=== PATIENT | female | born 1980 | race Caucasian/White ===

== ENCOUNTER 2016-04-12 00:49 | Emergency (ER) | payer SELFPAY ==
[~2016-04-12] VITALS: Ht 170.2 cm; Wt 65.0 kg
[2016-04-12 00:53] VITALS: BP 112/86; PULSE 92; RESP 18; TEMP 98; O2SAT 100
[2016-04-12] MEDS ORDERED: TETANUS/DIPHTHERIA TOXOID ADULT 0.5 ML VIAL IM ONE (01:15)
[2016-04-12] MEDS ORDERED: ACETAMINOPHEN/CODEINE 300 MG/30 MG TAB PO ONE (01:15)
[2016-04-12] MEDS ORDERED: ONDANSETRON ODT 4 MG TAB PO ONE (01:15)
--- NOTE | 2016-04-12 01:17 | PD ---
HPI Chief Complaint: Injury Time Seen by Provider: 01:10 Travel History International Travel<30 days: No Contact w/Intl Traveler<30days: No Traveled to known affect area: No History of Present Illness HPI 36-year-old female presents for evaluation of a puncture wound to the plantar aspect of the right forefoot. She reports that yesterday she was walking through her new house that she is moving into when she stepped on a nail. The nail went through the bottom of her flip-flop and into the plantar aspect of the right forefoot. She denies pain at the site of the puncture wound. Pain is throbbing and constant and worse with palpation or walking. She has washed the wound out. Her last tetanus vaccination is unknown. No other complaints. PFSH Past Medical History Anemia: Yes Cancer: No Diabetes: No Diminished Hearing: No Glaucoma: No Hepatitis: No Hiatal Hernia: No Hypertension: No Immunizations Current: Yes Migraines: Yes Thyroid Disease: No Tetanus Vaccination: Unknown Influenza Vaccination: Yes ?: Not : 6 Para: 3 Miscarriage: 2 : 1 Past Surgical History Section: Yes (3 ) Gynecologic Surgery: Yes (C SECTION X 3) Oral Surgery: Yes (TONSILLECTOMY) Tonsillectomy: Yes ( A CHILD.) Other Surgery: Yes Social History Alcohol Use: No Tobacco Use: Yes (1/2 PK/DAY) Substance Use: No Allergies-Medications (Allergen,Severity, Reaction): Coded Allergies: No Known Allergies (Verified , 04/12/16) Reported Meds & Prescriptions Reported Meds & Active Scripts Active Ibuprofen 800 Mg Tab 800 Mg PO Q6HR PRN Keflex (Cephalexin) 500 Mg Cap 500 Mg PO Q6H 5 Days Cipro (Ciprofloxacin HCl) 500 Mg Tab 500 Mg PO BID 5 Days Review of Systems Musculoskeletal: Positive: Pain, No: Limited ROM Skin: Positive Other (puncture wound) Physical Exam Narrative GENERAL: Well-developed well-nourished female in no acute distress SKIN: Warm and dry. Puncture wound plantar aspect right forefoot no bleeding noted drainage no erythema no induration no palpable foreign bodies Extremities: Skin as noted above with no obvious bony disturbance. Data Data Last Documented VS Vital Signs Date Time Temp Pulse Resp B/P Pulse Ox O2 Delivery O2 Flow Rate FiO2 04/12/16 00:53 98.0 92 18 112/86 100 Orders Foot, Limited (2vws) (04/12/16 ) Tetanus/Diphtheria Tox Adult (Tetanus/Di (04/12/16 01:15) Acetamin-Codeine 300-30 Mg (Tylenol-Code (04/12/16 01:15) Ondansetron Odt (Zofran Odt) (04/12/16 01:15) Cephalexin (Keflex) (04/12/16 02:30) Ciprofloxacin (Cipro) (04/12/16 02:30) MDM Medical Decision Making Medical Screen Exam Complete: Yes Emergency Medical Condition: Yes Medical Record Reviewed: Yes Differential Diagnosis Puncture wound, foreign body, fracture Narrative Course Tetanus status updated. Pain medication administered. X-ray imaging obtained. X-ray imaging is negative. The patient is being started on Keflex and Cipro prophylactically. Ibuprofen prescribed for pain control. Diagnosis Primary Impression: Puncture wound of foot Qualified Code: S91.331A - Puncture wound of foot, right, initial encounter Additional Instructions: Wash the wound daily with soap and water and apply antibiotic cream. Medication as prescribed. Return for any evidence of infection such as increasing redness, red streaks up the leg, fevers. Med/Other Pt SpecificInfo: Prescription(s) given Scripts Ibuprofen 800 Mg [id number] Mg PO Q6HR PRN (PAIN) #40 TAB Ref 0 Prov:Mark Anthony Sanders MD 04/12/16 Cephalexin (Keflex)500 Mg [id number] Mg PO Q6H 5 Days Ref 0 Prov:Mark Anthony Sanders MD 04/12/16 Ciprofloxacin (Cipro)500 Mg [id number] Mg PO BID 5 Days Ref 0 Prov:Mark Anthony Sanders MD 04/12/16 Disposition: 01 DISCHARGE HOME Condition: Stable James Medrano Apr 12, 2016 01:17
[2016-04-12] MEDS ORDERED: IBUP800T23 PO (01:18)
[2016-04-12] MEDS ORDERED: CEPH-460 PO (01:18)
[2016-04-12] MEDS ORDERED: CIPR-9 PO (01:18)
--- NOTE | 2016-04-12 01:58 | RADRPT ---
EXAM DATE/TIME: 04/12/2016 01:35 [facility] COMPARISON: No previous studies available for comparison. INDICATIONS : Puncture wound to right foot from a derick nail. MEDICAL HISTORY : None. SURGICAL HISTORY : None. ENCOUNTER: Initial ACUITY: 1 day PAIN SCORE: 3/10 LOCATION: Right foot FINDINGS: Two view examination of the right foot demonstrates no soft tissue swelling, dislocation, or fracture . The calcaneus is intact. Bony mineralization is normal. CONCLUSION: Unremarkable 2 views. Spencer De Leon MD on April 12, 2016 at 1:56 Board Certified Radiologist. This report was verified electronically.
[2016-04-12] MEDS ORDERED: CEPHALEXIN MONOHYDRATE 500 MG CAP PO ONE (02:30)
[2016-04-12] MEDS ORDERED: CIPROFLOXACIN 500 MG TAB PO ONE (02:30)
== END 2016-04-12 02:36 | disposition home or self-care (01) ==
LOC: NEPB 00:49
DX: S91.331A Puncture wound without foreign body, right foot, initial encounter (principal); D64.9 Anemia, unspecified; F17.210 Nicotine dependence, cigarettes, uncomplicated; Z23 Encounter for immunization; W45.0XXA Nail entering through skin, initial encounter; Y99.8 Other external cause status
CPT/HCPCS: 73620; 90471; 90714

== ENCOUNTER 2016-07-06 02:33 | Observation (INO) | payer SELFPAY ==
[2016-07-06] VITALS (7 sets, daily range): BP systolic 93–110; BP diastolic 56–74; PULSE 64–76; RESP 16–20; TEMP 97.5–97.8; O2SAT 100
[~2016-07-06 02:33] MED LIST: CEPH-460 PO; CIPR-9 PO; IBUP800T23 PO
[2016-07-06] MEDS ORDERED: ASPIRIN 81 MG CHEW TAB PO ONE (05:00)
[2016-07-06] MEDS ORDERED: SODIUM CHLORIDE 0.9% FLUSH 10 ML FLUSH IVF PRN (05:00)
[2016-07-06 05:11] LABS: AUTOMATED NEUTROPHIL # 2.4 TH/MM3 (1.8-7.7); BASOPHIL # 0.1 TH/MM3 (0-0.2); BASOPHIL % 2.2 % (0.0-2.0); EOSINOPHIL # 0.2 TH/MM3 (0-0.4); HEMATOCRIT 35.8 % (35.0-46.0); HEMO FLAGS DIFF FINAL; LYMPHOCYTE # 2.3 TH/MM3 (1.0-4.8); MEAN CELL VOLUME 90.9 FL (80.0-100.0); MEAN CORPUSCULAR HEMOGLOBIN 30.4 PG (27.0-34.0); MEAN CORPUSCULAR HGB CONC 33.4 % (32.0-36.0); MONO % 7.2 % (0.0-8.0); NEUT % 44.6 % (16.0-70.0); PLATELET COUNT 222 TH/MM3 (150-450); RED BLOOD COUNT 3.94 MIL/MM3 (4.00-5.30); RED CELL DISTRIBUTION WIDTH 13.9 % (11.6-17.2); WHITE BLOOD COUNT 5.4 TH/MM3 (4.0-11.0)
--- NOTE | 2016-07-06 05:33 | PD ---
HPI Chief Complaint: Chest Pain Time Seen by Provider: 04:50 Travel History International Travel<30 days: No Contact w/Intl Traveler<30days: No Traveled to known affect area: No History of Present Illness HPI The patient is a 36 year old female who presents to the [facility] emergency department with a history of left-sided chest pain that she reports began yesterday morning upon awakening. The patient reports that the pain has been constant and sharp in character. She denies having any diaphoresis, however she has had nausea. She reports the pain radiates to the left shoulder. She denies having any cough associated with this. She reports that the pain is made worse with movement or taking a breath. He denies ever having a pain like this previously. She reports that her recent history has been complicated by not feeling well over the last few days related to a broken tooth in her left posterior mandible. She reports that she's developed a sore on the side of her tongue related to this and a sore throat. The patient reports that she feels short of breath related to the pain. She denies having any fever, cough, or congestion otherwise. She denies having any vomiting or diarrhea. On review of systems, the patient denies any neck pain, abdominal pain,diarrhea, urinary symptoms, or neurologic symptoms. [facility] Past Medical History Narrative Medical The patient's past medical history is significant for anemia and migraine headaches. Anemia: Yes Cancer: No Diabetes: No Diminished Hearing: No Glaucoma: No Hepatitis: No Hiatal Hernia: No Hypertension: No Immunizations Current: Yes Migraines: Yes Thyroid Disease: No Tetanus Vaccination: < 5 Years Influenza Vaccination: Yes ?: Not : 6 Para: 3 Miscarriage: 2 : 1 Past Surgical History Narrative Surgical The patient's past surgical history is significant for 3 prior C-sections, tonsillectomy, history of left shoulder labrum repair in January 2016. Section: Yes (3 ) Gynecologic Surgery: Yes (C SECTION X 3) Oral Surgery: Yes (TONSILLECTOMY) Tonsillectomy: Yes ( A CHILD.) Other Surgery: Yes Social History Alcohol Use: No Tobacco Use: Yes (1/2 PK/DAY) Substance Use: No (denies IV drug use) Allergies-Medications (Allergen,Severity, Reaction): Coded Allergies: No Known Allergies (Verified , 07/06/16) Reported Meds & Prescriptions Reported Meds & Active Scripts Active Review of Systems Except as stated in HPI: all other systems reviewed are Neg General / Constitutional: No: Fever Eyes: No: Visual changes HENT: Positive: Sore Throat, Dental Difficulties, No: Headaches Cardiovascular: Positive: Chest Pain or Discomfort Respiratory: Positive: Shortness of Breath Gastrointestinal: Positive: Nausea, No: Vomiting, Diarrhea, Abdominal Pain, Changes in Bowel Habits, Indigestion, Loss of Appetite Genitourinary: No: Dysuria Musculoskeletal: No: Pain Skin: No Rash Neurologic: No: Weakness Psychiatric: No: Depression Endocrine: No: Polydipsia Hematologic/Lymphatic: No: Easy Bruising Physical Exam Narrative General: The patient is well-developed well-nourished female in no acute distress. Head and Neck exam: Head is normocephalic atraumatic. Eyes: EOMI, pupils are equal round and reactive to light. Nose: Midline septum with pink mucous membranes Mouth: With a broken tooth along the left posterior mandible associated with surrounding gingival erythema without any deni abscess formation. The patient has an aphthous ulcer noted along the lateral aspect of the left side of the tongue associated with rubbing against the sharp broken tooth. Moist mucus membranes. Posterior oropharynx is not erythematous. No tonsillar hypertrophy. Uvula midline. Airway patent. Neck: No palpable lymphadenopathy. No nuchal rigidity. No thyromegaly. Cardiovascular: Regular rate and rhythm without murmurs, gallops, or rubs. Lungs: Clear to auscultation bilaterally. No wheezes, rhonchi, or rales. Abdomen: Soft, without tenderness to palpation in all 4 quadrants of the abdomen. No guarding, rebound, or rigidity. Normal bowel sounds are audible. No tenderness on palpation of McBurney's point. Negative Paulino's sign. Extremities: No clubbing, cyanosis, or edema. 2+ pulses in all 4 extremities. No calf tenderness on palpation. Back: No spinous process tenderness to palpation. No costovertebral angle tenderness to palpation. Neurologic Exam: Grossly nonfocal. Skin Exam: No rash noted. Intact skin that is warm and dry. Data Data Last Documented VS Vital Signs Date Time Temp Pulse Resp B/P Pulse Ox O2 Delivery O2 Flow Rate FiO2 07/06/16 05:14 65 16 93/62 07/06/16 05:06 100 Room Air 07/06/16 02:38 97.6 Orders Electrocardiogram (07/06/16 02:42) Electrocardiogram (07/06/16 04:50) Ckmb (Isoenzyme) Profile (07/06/16 04:50) Complete Blood Count With Diff (07/06/16 04:50) Comprehensive Metabolic Panel (07/06/16 04:50) D-Dimer (07/06/16 04:50) Magnesium (Mg) (07/06/16 04:50) Prothrombin Time / Inr (Pt) (07/06/16 04:50) Act Partial Throm Time (Ptt) (07/06/16 04:50) Troponin I (07/06/16 04:50) Lipase (07/06/16 04:50) Chest, Single Ap (07/06/16 04:50) Ecg Monitoring (07/06/16 04:50) Bilateral Bp Monitoring (07/06/16 04:50) Iv Access Insert/Monitor (07/06/16 04:50) Oximetry (07/06/16 04:50) Oxygen Administration (07/06/16 04:50) Aspirin Chew (Aspirin Chew) (07/06/16 05:00) Sodium Chloride 0.9% Flush (Ns Flush) (07/06/16 05:00) Clindamycin Inj (Cleocin Inj) (07/06/16 06:00) Sodium Chlor 0.9% 1000 Ml Inj (Ns 1000 M (07/06/16 06:00) Ondansetron Inj (Zofran Inj) (07/06/16 06:00) Admit Order (Ed Use Only) (07/06/16 06:23) Place In Observation (07/06/16 06:23) Activity Bed Rest With Brp (07/06/16 06:23) Vital Signs (Adult) Q4H (07/06/16 06:23) Cardiac Rhythm .As Directed (07/06/16 06:23) Notify Dr: Other .PRN (07/06/16 06:23) Notify Parameters (07/06/16 06:23) Resp Oxygen Nasal Cannula (07/06/16 ) Diet Npo (07/06/16 Breakfast) Ckmb (Isoenzyme) Profile (07/06/16 08:00) Ckmb (Isoenzyme) Profile (07/06/16 11:00) Troponin I (07/06/16 08:00) Troponin I (07/06/16 11:00) Electrocardiogram (07/06/16 08:00) Electrocardiogram (07/06/16 11:00) ^ Obtain (07/06/16 06:23) Sodium Chlor 0.9% 1000 Ml Inj (Ns 1000 M (07/06/16 06:23) Acetaminophen (Tylenol) (07/06/16 06:30) Pantoprazole (Protonix) (07/06/16 09:00) Truss Puller Helper / Telemetry COLIN.Q8H (07/06/16 06:23) Labs Laboratory Tests Test 07/06/16 05:00 White Blood Count 5.4 TH/MM3 Red Blood Count 3.94 MIL/MM3 Hemoglobin 12.0 GM/DL Hematocrit 35.8 % Mean Corpuscular Volume 90.9 FL Mean Corpuscular Hemoglobin 30.4 PG Mean Corpuscular Hemoglobin 33.4 % Concent Red Cell Distribution Width 13.9 % Platelet Count 222 TH/MM3 Mean Platelet Volume 8.5 FL Neutrophils (%) (Auto) 44.6 % Lymphocytes (%) (Auto) 43.0 % Monocytes (%) (Auto) 7.2 % Eosinophils (%) (Auto) 3.0 % Basophils (%) (Auto) 2.2 % Neutrophils # (Auto) 2.4 TH/MM3 Lymphocytes # (Auto) 2.3 TH/MM3 Monocytes # (Auto) 0.4 TH/MM3 Eosinophils # (Auto) 0.2 TH/MM3 Basophils # (Auto) 0.1 TH/MM3 CBC Comment DIFF FINAL Differential Comment Prothrombin Time 10.8 SEC Prothromb Time International 1.0 RATIO Ratio Activated Partial 25.5 SEC Thromboplast Time D-Dimer Quantitative (PE/DVT) 0.29 MG/L FEU Sodium Level 142 MEQ/L Potassium Level 4.1 MEQ/L Chloride Level 107 MEQ/L Carbon Dioxide Level 27.2 MEQ/L Anion Gap 8 MEQ/L Blood Urea Nitrogen 8 MG/DL Creatinine 0.69 MG/DL Estimat Glomerular Filtration 97 ML/MIN Rate Random Glucose 86 MG/DL Calcium Level 7.8 MG/DL Magnesium Level 2.1 MG/DL Total Bilirubin 0.2 MG/DL Aspartate Amino Transf 11 U/L (AST/SGOT) Alanine Aminotransferase 15 U/L (ALT/SGPT) Alkaline Phosphatase 57 U/L Total Creatine Kinase 60 U/L Troponin I LESS THAN 0.02 NG/ML Total Protein 5.7 GM/DL Albumin 3.0 GM/DL Lipase 80 U/L MDM Medical Decision Making Medical Screen Exam Complete: Yes Emergency Medical Condition: Yes Medical Record Reviewed: Yes Interpretation(s) Last Impressions Chest X-Ray 07/06/16 0450 Signed Impressions: Service Date/Time: Wednesday, July 06, 2016 05:10 - CONCLUSION: Normal examination. Jorge Yadav MD Differential Diagnosis Pneumonia, versus costochondritis, versus pleurisy, versus pulmonary embolism, versus endocarditis, versus acute coronary syndrome Narrative Course During the course of the patients emergency department visit, the patients history, examination, and differential diagnosis were reviewed with the patient. The patient had IV access obtained and blood work sent for analysis. The patient was placed on a hall monitor with oximetry and blood pressure monitoring. An EKG was done. The patient was initially provided aspirin 162 mg by mouth 1. Regarding the patient's gingival infection associated with a dental fracture and dental decay the patient was given a dose of antibiotic IV. The patients laboratory studies were reviewed and remarkable for a white count of 5.4, hemoglobin 12, platelets 222 with a normal differential, CMP is remarkable for calcium 7.8, AST 11, CPK 60, troponin I less than 0.02, lipase 80 , PT PTT within normal limits, d-dimer 0.29 decreasing the likelihood of pulmonary embolism in this patient with no other significant risk factors. Radiology studies were reviewed and remarkable for a chest x-ray that shows no acute abnormality. The patient will be admitted to the chest pain center for rule out serial cardiac enzyme protocol and consideration of stress testing. The patients results were discussed with the patient, including the plan of care. I explained that further testing and/ or monitoring is indicated based on the patients history, examination, and/ or laboratory findings. Therefore, I recommended admission for additional evaluation. The patient expressed understanding and was agreeable with this plan. The patient was admitted to the hospital in stable condition and sent to a bed under the care of the chest pain center. Diagnosis Primary Impression: Chest pain, rule out acute myocardial infarction Additional Impressions: Dentalgia Gingivitis Admitting Information Admitting Physician Requests: Observation Med/Other Pt SpecificInfo: Prescription(s) given Scripts Amoxicillin-Clavulanate (Augmentin)875-125 mg [id number] Mg PO BID #20 TAB Ref 0 not for use in CrCl <30 ml/min. Prov:Cristina Holt MD 07/06/16 Cristina Holt MD Jul 06, 2016 05:33
[2016-07-06 05:36] LABS: ANION GAP 8 MEQ/L (5-15); AST (GOT) 11 U/L (15-37); BICARBONATE 27.2 MEQ/L (21.0-32.0); BLOOD UREA NITROGEN 8 MG/DL (7-18); CHLORIDE 107 MEQ/L (98-107); GLOMERULAR FILTRATION RATE 97 ML/MIN (>89); MAGNESIUM 2.1 MG/DL (1.5-2.5); POTASSIUM 4.1 MEQ/L (3.5-5.1); SODIUM (NA) 142 MEQ/L (136-145)
[2016-07-06 05:51] LABS: ALKALINE PHOSPHATASE 57 U/L (45-117); ALT (GPT) 15 U/L (10-53); TOTAL BILIRUBIN ADULT 0.2 MG/DL (0.2-1.0)
[2016-07-06 05:56] LABS: APTT (PATIENT) 25.5 SEC (24.3-30.1); PROTHROMBIN TIME - PATIENT 10.8 SEC (9.8-11.6)
[2016-07-06 05:58] LABS: CREATINE KINASE 60 U/L (26-192)
[2016-07-06] MEDS ORDERED: CLINDAMYCIN INJ 900 MG in SODIUM CHLORIDE 0.9% INJ 100 ML IV ONE (06:00)
[2016-07-06] MEDS ORDERED: ONDANSETRON HCL 4 MG/2 ML VIAL IV ONE (06:00)
[2016-07-06] MEDS ORDERED: SODIUM CHLOR 0.9% 1000 ML INJ 1,000 ML IV ONE (06:00)
--- NOTE | 2016-07-06 06:02 | RADRPT ---
EXAM DATE/TIME: 07/06/2016 05:10 [facility] COMPARISON: CHEST SINGLE AP, November 20, 2013, 11:14. INDICATIONS : Chest pain. MEDICAL HISTORY : None. SURGICAL HISTORY : None. ENCOUNTER: Initial ACUITY: 1 day PAIN SCORE: 5/10 LOCATION: Bilateral chest FINDINGS: A single view of the chest demonstrates the lungs to be symmetrically aerated without evidence of mas s, infiltrate or effusion. The cardiomediastinal contours are unremarkable. Osseous structures are intact. CONCLUSION: Normal examination. Jorge Yadav MD on July 06, 2016 at 6:00 Board Certified Radiologist. This report was verified electronically.
[2016-07-06] MEDS ORDERED: SODIUM CHLOR 0.9% 1000 ML INJ 1,000 ML IV SCH (06:23)
[2016-07-06] MEDS ORDERED: ACETAMINOPHEN 500 MG CPLT PO PRN (06:30)
[2016-07-06] MEDS ORDERED: AUGM875T PO (07:20)
[2016-07-06] MEDS ORDERED: NITROGLYCERIN 0.4 MG SL 25 TABS/BTL SL PRN (07:30)
--- NOTE | 2016-07-06 07:41 | EKG ---
Date Performed: 07/06/2016 Time Performed: 02:49:40 PTAGE: 36 years EKG: Sinus rhythm NORMAL ECG NO PREVIOUS TRACING DOCTOR: Angel Pelletier Interpretating Date/Time 07/06/2016 07:39:35
[2016-07-06] MEDS ORDERED: KETOROLAC TROMETHAMINE 30 MG/ML (IVP) VIAL IV PUSH ONE (08:30)
--- NOTE | 2016-07-06 08:38 | HHI.HP ---
HPI Primary Care Physician No Primary Care Physician Chief Complaint Chest pain History of Present Illness 36-year-old patient presents to the emergency room with left-sided chest pain. States chest pain started approximately 8:30 AM upon awakening. Characterized as a sharp, quick pain without radiation. Duration has been constant and waxed and waned in intensity. No associated symptoms. No known relieving factors. Breathing makes pain worse. No particular movements makes pain better or worse. Review of Systems General: No fatigue,weakness, fever, chills. Current dental infection. HEENT: No MARK, no vision changes, no nasal congestion or drainage, no dysphasia CV: As stated above. Continues to have left-sided chest discomfort. No chest pressure, palpitations, intermittent leg pain, or dizziness. RESP: No SOB, cough, wheeze, or recent URI. GI: No nausea, vomiting, bowel changes, diarrhea, constipation, pain, distention , melena, blood in the stool. No change in appetite, no unintentional weight gain or weight loss. : No dysuria, urgency, frequency, or hematuria. Last menses completed 2 days ago. No chance of . EXT: No lower leg edema, no paraesthesias MS: Twisting and taking a deep breath makes left-sided chest pain worse. No change in ROM or known trauma. NEURO: No change in memory, dizziness, difficulty with balance, LOC, motor/ sensory deficits PSYCH: No anxiety, depression, suicidal ideation. Endorses situational stress. SKIN: No rashes, no concerning lesions Past Family Social History Allergies: Coded Allergies: No Known Allergies (Verified , 07/06/16) Past Medical History Anemia, migraine Past Surgical History Tonsillectomy, 3, left shoulder /16, tubal ligation Reported Medications Reported Meds & Active Scripts Active No prescription medications, vitamins, or supplements. Active Ordered Medications Current Medications Medications (Trade) Dose Ordered Sig/Herman Route Start Time Stop Time Status Last Admin (NS 1000 ml Inj) 1,000 ml @ 100 mls/hr Q10H IV 07/06/16 06:23 07/06/16 08:01 (Tylenol) 500 mg Q4H PRN PO 07/06/16 06:30 (Protonix) 40 mg DAILY PO 07/06/16 09:00 (NS Flush) 2 ml BID IV FLUSH 07/06/16 09:00 (Nitrostat Sl) 0.4 mg Q5M PRN SL 07/06/16 07:30 (Aspirin) 325 mg DAILY PO 07/06/16 09:00 Family History Noncontributory for early onset cardiovascular disease. Social History No known diabetes, hyperlipidemia, or hypertension. Current smoker half pack daily. Denies alcohol or illegal drug use. Endorses she is active. Past cardiac testing No formal cardiac testing. Never required a senior web engineer. Physical Exam Vital Signs Vital Signs Date Time Temp Pulse Resp B/P Pulse Ox O2 Delivery O2 Flow Rate FiO2 07/06/16 07:59 76 20 104/62 100 Room Air 07/06/16 05:14 65 16 93/62 07/06/16 05:06 64 16 101/68 100 Room Air 07/06/16 02:38 97.6 71 16 108/74 100 Physical Exam GENERAL: Alert WN, WD, NAD, pleasant, female HEAD: NC, AT EYES: Sclera clear, conjunctiva without injection, pupils equal and round NECK: Supple, no masses, trachea midline CV: RRR, without murmur, rub, gallop, no JVD, S1-S2 no S3-S4. RESP: Clear lungs throughout bilateral, no crackles, wheeze, rhonchi, symmetrical chest rise, nonlabored, able to speak in full sentences. ABD: Soft, NT, ND, no masses, positive bowel tones BACK: No CVAT, no scoliosis EXT: Pulses +24, no dependent edema MS: Chest discomfort reproducible with palpation. Normal tone 4 extremities, no obvious deformities, full range of motion NEURO: CN II through CN XII grossly intact, motor strength 5/5, gait WNL PSYCH: A+O 3, pleasant affect, appropriate speech, appropriate mood and affect , insight and judgment SKIN: Normal turgor, normal texture, no lesions, no rashes, even hair distribution, multiple tattoos and piercings Laboratory Laboratory Tests Test 07/06/16 05:00 White Blood Count 5.4 Red Blood Count 3.94 Hemoglobin 12.0 Hematocrit 35.8 Mean Corpuscular Volume 90.9 Mean Corpuscular Hemoglobin 30.4 Mean Corpuscular Hemoglobin 33.4 Concent Red Cell Distribution Width 13.9 Platelet Count 222 Mean Platelet Volume 8.5 Neutrophils (%) (Auto) 44.6 Lymphocytes (%) (Auto) 43.0 Monocytes (%) (Auto) 7.2 Eosinophils (%) (Auto) 3.0 Basophils (%) (Auto) 2.2 Neutrophils # (Auto) 2.4 Lymphocytes # (Auto) 2.3 Monocytes # (Auto) 0.4 Eosinophils # (Auto) 0.2 Basophils # (Auto) 0.1 CBC Comment DIFF FINAL Differential Comment Prothrombin Time 10.8 Prothromb Time International 1.0 Ratio Activated Partial 25.5 Thromboplast Time D-Dimer Quantitative (PE/DVT) 0.29 Sodium Level 142 Potassium Level 4.1 Chloride Level 107 Carbon Dioxide Level 27.2 Anion Gap 8 Blood Urea Nitrogen 8 Creatinine 0.69 Estimat Glomerular Filtration 97 Rate Random Glucose 86 Calcium Level 7.8 Magnesium Level 2.1 Total Bilirubin 0.2 Aspartate Amino Transf 11 (AST/SGOT) Alanine Aminotransferase 15 (ALT/SGPT) Alkaline Phosphatase 57 Total Creatine Kinase 60 Troponin I LESS THAN 0.02 Total Protein 5.7 Albumin 3.0 Lipase 80 Result Diagram: 07/06/16 0500 07/06/16 0500 Imaging Last Impressions Chest X-Ray 07/06/16 0450 Signed Impressions: Service Date/Time: Wednesday, July 06, 2016 05:10 - CONCLUSION: Normal examination. Jorge Yadav MD Course EKGs First 2 EKGs show normal sinus rhythm, normal axis, with no ST or T-segment changes Assessment and Plan Assessment and Plan #1 Chest painadmitted to chest pain center. We'll complete 3 sets of EKGs, cardiac enzymes, and continue to monitor. Will be seen and evaluated by Dr. Cher Reese. Further disposition to follow after assessment by senior web engineer. #2 Musculoskeletal painToradol 30 mg IV 1 dose #3 Tobacco usediscussed and counseled patient on the effects of tobacco use. Encouraged patient to stop smoking. #4 Situational stressencouraged healthy diet, daily activity, smoking sensation , limited of caffeine use, and establishing with a PCP as needed. 8:45 Patient seen and evaluated by Dr. Reese. Pain most likely musculoskeletal in nature, however patient is highly concerned over chest discomfort being related to her heart therefore exercise stress test will be performed. 10:40 Treadmill exercise test completed, target of 80%, walked 9 minutes. No further cardiac testing required. Discharge with Naproxen 500mg BID x 3 days, instructed to take medication with food and to establish with a PCP. Ade Wild Jul 06, 2016 08:38
[2016-07-06] MEDS ORDERED: SODIUM CHLORIDE 0.9% FLUSH 10 ML FLUSH IV FLUSH SCH (09:00)
[2016-07-06] MEDS ORDERED: ASPIRIN 325 MG TAB PO SCH (09:00)
[2016-07-06] MEDS ORDERED: PANTOPRAZOLE SOD 40 MG DELAYED RELEASE TAB PO SCH (09:00)
[2016-07-06] MEDS ORDERED: NAPR500T PO (10:48)
--- NOTE | 2016-07-06 10:49 | HHI.DCPOC ---
Discharge Care Plan Diagnosis: (1) Musculoskeletal chest pain (2) Tobacco abuse (3) Gingivitis (4) Dentalgia Goals to Promote Your Health * To prevent worsening of your condition and complications * To maintain your health at the optimal level Directions to Meet Your Goals Take your medications as prescribed Follow your dietary instruction Follow activity as directed Keep your appointments as scheduled Take your immunizations and boosters as scheduled If your symptoms worsen call your PCP, if no PCP go to Urgent Care Center or Emergency Room Smoking is Dangerous to Your Health. Avoid second hand smoke Call the 24-hour hour crisis hotline for domestic abuse at Ade Wild Jul 06, 2016 10:48
--- NOTE | 2016-07-06 14:42 | EKG ---
Date Performed: 07/06/2016 Time Performed: 07:55:47 PTAGE: 36 years EKG: Sinus rhythm POSSIBLE RIGHT VENTRICULAR CONDUCTION DELAY BORDERLINE ECG NO SIGNIFICANT CHANGE FROM PRIOR ELECTROC ARDIOGRAM. PREVIOUS TRACING : 07/06/2016 02.49 DOCTOR: Angel Pelletier Interpretating Date/Time 07/06/2016 14:41:28
--- NOTE | 2016-07-06 17:36 | TR ---
Date Performed: 07/06/2016 Time Performed: 10:07:14 DOCTOR: Cher Reese DRUG LIST: CLINICAL HISTORY: REASON FOR TEST: CP RO AZ REASON FOR ENDING: OBSERVATION: CONCLUSION: Jaspal protocol attempts. Stopped sec to leg fatigue. Maximum JS=410 Maximum SB=568/8 0 Total Exercise Time=9:13 % Max HR Achieved=80% No reprod chest pain. No ectopy. No st t segments ch anges to sugg ischemia. Fair exercise tolerance. Normal bp response. Recovery quick and unremarkable. COMMENTS:
== END 2016-07-06 12:13 | disposition home or self-care (01) ==
LOC: NEPC 02:33 → NEDA 06:26 → NEPHCDU 08:29
PROVIDERS: ADMIT Internal Medicine Cardiovascular Disease; ATTEND Internal Medicine Cardiovascular Disease
DX: R07.9 Chest pain, unspecified (principal); M79.1 Myalgia; F43.0 Acute stress reaction; F17.200 Nicotine dependence, unspecified, uncomplicated
CPT/HCPCS: 71010; 80053; 82550; 83690; 83735; 84484; 85025; 85379; 85610; 85730; 93005; 93017; 96374; 96375; 99285; G0378; J1885; J2405; J7030

== ENCOUNTER 2016-09-24 10:49 | Emergency (ER) | payer SELFPAY ==
[~2016-09-24] VITALS: Ht 170.2 cm; Wt 75.0 kg
[~2016-09-24 10:49] MED LIST changes: +AUGM875T PO; -CEPH-460 PO; -CIPR-9 PO; -IBUP800T23 PO; +NAPR500T PO
[2016-09-24 10:51] VITALS: BP 135/79; PULSE 92; RESP 20; TEMP 97.5; O2SAT 99
--- NOTE | 2016-09-24 11:08 | PD ---
HPI Chief Complaint: Fall Time Seen by Provider: 11:05 Travel History International Travel<30 days: No Contact w/Intl Traveler<30days: No Traveled to known affect area: No History of Present Illness HPI 36-year-old female presents to the emergency department for evaluation of sacral pain status post fall onto her buttocks. Patient states that early this morning about 4:30 AM she got up and walked down her spiral staircase and did not see her daughter's beanbag toy which she stepped on and this caused her to slip landing on her bottom on the step. States that she bounced down on her bottom 2 steps after the initial fall. Denies head trauma or loss of consciousness. States that since the fall she's had significant pain in her coccyx, sacrum and lower back. States that the pain is aggravated with movement. Denies any alleviating factors. States that she has tried ibuprofen and Tylenol without improvement of symptoms. She complains of shooting pain to bilateral posterior thighs as well. Denies any saddle anesthesia, bowel or bladder incontinence, weakness, numbness or tingling. Denies , last menstrual period 1 week ago. No other complaints. PFSH Past Medical History Anemia: Yes Cancer: No Cardiovascular Problems: No Diabetes: No Diminished Hearing: No Glaucoma: No Hepatitis: No Hiatal Hernia: No Hypertension: No Immunizations Current: Yes Migraines: Yes Thyroid Disease: No ?: Not : 6 Para: 3 Miscarriage: 2 : 1 Past Surgical History Section: Yes (3 ) Gynecologic Surgery: Yes (C SECTION X 3) Oral Surgery: Yes (TONSILLECTOMY) Tonsillectomy: Yes ( A CHILD.) Other Surgery: Yes Social History Alcohol Use: No Tobacco Use: Yes (1/2 PK/DAY) Substance Use: No (denies IV drug use) Allergies-Medications (Allergen,Severity, Reaction): Coded Allergies: No Known Allergies (Verified , 09/24/16) Reported Meds & Prescriptions Reported Meds & Active Scripts Active No Active Prescriptions or Reported Medications Review of Systems Except as stated in HPI: all other systems reviewed are Neg Physical Exam Narrative GENERAL: Well-nourished and well-developed pleasant female patient in no acute distress. SKIN: No obvious lacerations or abrasions noted. HEAD: Normocephalic and atraumatic. EYES: No scleral icterus, injection, or drainage. PERRLA. EOMI. No hyphema present. ENT: No septal hematoma or hemotympanum noted. Oropharynx is clear and the airway is patent. NECK: Supple and the trachea is midline. No obvious deformities, crepitus, or midline tenderness noted. CARDIOVASCULAR: Regular rate and rhythm. RESPIRATORY: Breath sounds are equal bilaterally with no accessory muscle use, wheezing, rhonchi, or crackles. MUSCULOSKELETAL: Pain elicited in lower back and sacrum with movement of legs bilaterally. No obvious deformities, swelling, cyanosis, or ecchymosis is present throughout the upper and lower extremities. Patient has full range of motion without any signs of neurovascular compromise. BACK: Tenderness to palpation of coccyx, sacrum and lumbar spine at midline. Nontender without any obvious deformities or crepitus noted throughout the thoracic and lumbar vertebrae. NEUROLOGICAL: Awake, alert, and oriented. Normal speech and gait. Cranial nerves are grossly intact. Data Data Last Documented VS Vital Signs Date Time Temp Pulse Resp B/P Pulse Ox O2 Delivery O2 Flow Rate FiO2 09/24/16 11:05 Room Air 09/24/16 10:51 97.5 92 20 135/[address] Lumb Spine W/O Contrast (09/24/16 11:04) Acetamin-Hydrocod 325-5 Mg ([place] 5-325 (09/24/16 11:15) MDM Medical Decision Making Medical Screen Exam Complete: Yes Emergency Medical Condition: Yes Differential Diagnosis Fracture versus contusion versus discogenic pain Narrative Course 36-year-old female presents to the emergency department for evaluation of lower back pain and sacral pain status post trip and fall onto her buttocks early this morning. Patient is afebrile, vital signs are stable. No head trauma or loss of consciousness. No focal neurologic deficits. CT imaging has been ordered and is pending. Patient is administered Lortab 5325 milligrams orally here in the ED. CT of the lumbar spine shows coccygeal fracture without displacement. Patient will be discharged with a prescription for Lortab. Discussed supportive care. Advised to follow up as an outpatient with her primary care or an orthopedist. Patient verbalizes understanding and agreement with treatment plan. Diagnosis Primary Impression: Fractured coccyx Qualified Code: S32.2XXA - Closed fracture of coccyx, initial encounter Referrals: Orthopedist Primary Care Physician Patient Instructions: Coccyx Injury (ED), General Instructions Departure Forms: Tests/Procedures, Work Release Enter return to work date: Oct 01, 2016 Special Instructions: Please excuse from work until 10/01/16 or earlier if patient's symptoms improve. Additional Instructions: Rest. Apply ice for 20 minutes on, 20 minutes off. Sit on in inflatable donut when sitting. Take medication as prescribed with food and a full glass of water. Do not take Lortab with alcohol or while driving. Follow-up with your Primary Care Physician. Return to the ED for any acute worsening of symptoms. Med/Other Pt SpecificInfo: Prescription(s) given Scripts Hydrocodone-Acetaminophen (Lortab)5-325 Mg Tab1 Tab PO Q6H PRN (PAIN GREATER THAN 6) #20 TAB Ref 0 Prov:Nayan Stauffer MD 09/24/16 Disposition: 01 DISCHARGE HOME Condition: Stable Linda Miranda Sep 24, 2016 11:08
[2016-09-24] MEDS ORDERED: ACETAMINOPHEN/HYDROcodone 325 MG/5 MG TAB PO ONE (11:15)
--- NOTE | 2016-09-24 12:33 | RADRPT ---
EXAM DATE/TIME: 09/24/2016 11:56 [facility] COMPARISON: No previous studies available for comparison. INDICATIONS : Fell down stairs, pain in back and tail bone RADIATION DOSE: 35.86 CTDIvol (mGy) MEDICAL HISTORY : None SURGICAL HISTORY : None. ENCOUNTER: Initial ACUITY: 1 day PAIN SCALE: 5/10 LOCATION: low back and tail bone TECHNIQUE: Volumetric scanning of the lumbar spine was performed. Multiplanar reconstructions in the sagittal, coronal and oblique axial planes were performed. Using automated exposure control and adjustment of the mA and/or kV according to patient size, radiation dose was kept as low as reasonably achievable t o obtain optimal diagnostic quality images. DICOM format image data is available electronically for review and comparison. FINDINGS: VERTEBRAE: Normal vertebral body height. ALIGNMENT: No evidence of subluxation. T12-L1: The thecal sac has a normal diameter. No evidence of disc bulge or protrusion. The neural foramina are patent bilaterally. L1-L2: The thecal sac has a normal diameter. No evidence of disc bulge or protrusion. The neural foramina are patent bilaterally. L2-L3: The thecal sac has a normal diameter. No evidence of disc bulge or protrusion. The neural foramina are patent bilaterally. L3-L4: There is minimal eccentric disc bulging at L3-4 to the right. There is mild degenerative changes in the facets. L4-L5: There is mild generalized disc bulging present with minimal ligamentous hypertrophy and mild degenera tive facets. Spinal stenosis is mild. L5-S1: There is mild central disc bulge is evident. There are mild degenerative changes of the facets. There is nondisplaced fracture of the second coccygeal segment.. CONCLUSION: Coccygeal fracture without displacement. Mild degenerative changes. Collins Chow MD FACR on September 24, 2016 at 12:28 Board Certified Radiologist. This report was verified electronically.
[2016-09-24] MEDS ORDERED: HYDR-3533 PO (12:42)
== END 2016-09-24 13:12 | disposition home or self-care (01) ==
LOC: NEPK 10:49
DX: S32.2XXA Fracture of coccyx, initial encounter for closed fracture (principal); F17.200 Nicotine dependence, unspecified, uncomplicated; D64.9 Anemia, unspecified; W10.9XXA Fall (on) (from) unspecified stairs and steps, initial encounter
CPT/HCPCS: 72131

== ENCOUNTER 2017-04-08 08:00 | Emergency (ER) | payer SELFPAY | END 2017-04-08 09:44 | disposition home or self-care (01) | LOC: PHED 08:00 | DX: H66.92 Otitis media, unspecified, left ear (principal); J06.9 Acute upper respiratory infection, unspecified; D64.9 Anemia, unspecified; Z72.0 Tobacco use | CPT/HCPCS: 87804; 87804-59; 99284 ==

== ENCOUNTER 2017-08-10 07:52 | Emergency (ER) | payer SELFPAY ==
[~2017-08-10 07:52] MED LIST changes: +AMOX875T PO; -AUGM875T PO; +FLUT1SPR5 EACH NARE; +HYDR-3533 PO; -NAPR500T PO
[2017-08-10 07:54] VITALS: BP 116/76; PULSE 101; RESP 16; TEMP 98.7; O2SAT 99
[2017-08-10] MEDS ORDERED: BACT800T5 PO (09:04)
[2017-08-10] MEDS ORDERED: MUPI2%T TOPICAL (09:04)
--- NOTE | 2017-08-10 09:11 | PD ---
HPI Chief Complaint: Skin Problem Time Seen by Provider: 08:44 Travel History International Travel<30 days: No Contact w/Intl Traveler<30days: No Traveled to known affect area: No History of Present Illness HPI 37-year-old female presents emergency department with a possible spider bite/cellulitis to the right labia. Patient states it started with a pimple with a yellow head, and is now more of an open ulcer type wound. It is tender to touch. She denies fever, chills, changes in her bowels or urine. She denies vaginal discharge. She is currently on her period. No history of MRSA reported. No history of herpes is reported. She has no known drug allergies. PFSH Past Medical History Anemia: Yes Cancer: No Cardiovascular Problems: No Diabetes: No Diminished Hearing: No Glaucoma: No Hepatitis: No Hiatal Hernia: No Hypertension: No Respiratory: No Immunizations Current: Yes Migraines: Yes Thyroid Disease: No Tetanus Vaccination: < 5 Years ?: Not : 6 Para: 3 Miscarriage: 2 : 1 Past Surgical History Section: Yes (3 ) Gynecologic Surgery: Yes (C SECTION X 3) Oral Surgery: Yes (TONSILLECTOMY) Tonsillectomy: Yes ( A CHILD.) Other Surgery: Yes Social History Alcohol Use: Yes Tobacco Use: Yes (1/2 PK/DAY) Substance Use: No (denies IV drug use) Allergies-Medications (Allergen,Severity, Reaction): Coded Allergies: No Known Allergies (Verified Adverse Reaction, Unknown, 04/08/17) Reported Meds & Prescriptions Reported Meds & Active Scripts Active Bactroban Topical (Mupirocin) 22 Gm Cream 1 Applic TOPICAL TID Bactrim DS (Sulfamethoxazole-Trimethoprim) 800-160 Mg Tab 1 Tab PO BID Flonase Nasal [place] (Fluticasone Nasal [place]) 50 Mcg/Act [place] 100 Mcg EACH NARE BID Amoxicillin 875 Mg Tab 875 Mg PO BID 10 Days Lortab (Hydrocodone-Acetaminophen) 5-325 Mg Tab 1 Tab PO Q6H PRN Review of Systems Except as stated in HPI: all other systems reviewed are Neg General / Constitutional: No: Fever Eyes: No: Visual changes HENT: No: Headaches Cardiovascular: No: Chest Pain or Discomfort Respiratory: No: Shortness of Breath Gastrointestinal: No: Abdominal Pain Genitourinary: No: Dysuria Musculoskeletal: No: Pain Skin: Positive Lesions (See history of present illness per), No Rash Neurologic: No: Weakness Psychiatric: No: Depression Endocrine: No: Polydipsia Hematologic/Lymphatic: No: Easy Bruising Physical Exam Narrative GENERAL: Patient appears in no obvious distress. SKIN: Warm and dry. Normal color. Normal turgor. Patient has wound to the right labia which is open, and drained without abscess noted. The area is tender and indurated. It appears consistent with probable MRSA type infection. This area was examined with nursing staff present for tool carrier. HEAD: Atraumatic. Normocephalic. EYES: Pupils equal and round. No scleral icterus. No injection or drainage. ENT: No nasal bleeding or discharge. Mucous membranes pink and moist. Pharynx is clear. Airways patent. NECK: Trachea midline. No JVD. CARDIOVASCULAR: Regular rate and rhythm. RESPIRATORY: No accessory muscle use. Clear to auscultation. Breath sounds equal bilaterally. GASTROINTESTINAL: Abdomen soft, non-tender, nondistended. Hepatic and splenic margins not palpable. MUSCULOSKELETAL: Extremities without clubbing, cyanosis, or edema. No obvious deformities. NEUROLOGICAL: Awake and alert. No obvious cranial nerve deficits. Motor grossly within normal limits. Five out of 5 muscle strength in the arms and legs. Normal speech. PSYCHIATRIC: Appropriate mood and affect; insight and judgment normal. Data Data Last Documented VS Vital Signs Date Time Temp Pulse Resp B/P (MAP) Pulse Ox O2 Delivery O2 Flow Rate FiO2 08/10/17 07:54 98.7 101 16 116/76 (89) 99 MDM Medical Decision Making Medical Screen Exam Complete: Yes Emergency Medical Condition: Yes Differential Diagnosis Spider bite. Cellulitis. Abscess. Narrative Course Patient will be treated with Bactrim DS twice daily 7 days. Patient is also given Bactroban ointment to be applied to the area twice daily. Patient can take Tylenol or ibuprofen as needed for pain. Patient should follow-up if symptoms do not improve or worsen as needed. Diagnosis Primary Impression: Cellulitis Qualified Codes: L03.818 - Cellulitis of other sites Additional Impression: Insect bite Qualified Codes: W57.XXXA - Bitten or stung by nonvenomous insect and other nonvenomous arthropods, initial encounter Patient Instructions: Cellulitis (ED), General Instructions, Insect Bite or Sting (ED) Additional Instructions: Patient will be treated with Bactrim DS twice daily 7 days. Patient is also given Bactroban ointment to be applied to the area twice daily. Patient can take Tylenol or ibuprofen as needed for pain. Patient should follow-up if symptoms do not improve or worsen as needed. Med/Other Pt SpecificInfo: Prescription(s) given Scripts Mupirocin Topical (Bactroban Topical) 22 Gm Cream 1 APPLIC TOPICAL TID for Mgmt Bacterial Infection, #1 TUBE 0 Refills Prov: Nayan Stauffer MD 08/10/17 Sulfamethoxazole-Trimethoprim (Bactrim DS) 800-160 Mg Tab 1 TAB PO BID for Infection, #14 TAB 0 Refills Prov: Nayan Stauffer MD 08/10/17 Disposition: 01 DISCHARGE HOME Condition: Stable Willard Sky August 10, 2017 09:11
== END 2017-08-10 09:26 | disposition home or self-care (01) ==
LOC: NEPD 07:52
DX: L03.818 Cellulitis of other sites (principal)
CPT/HCPCS: 99283